=== PATIENT | male | born 2000 | race Hispanic/Latino ===

== ENCOUNTER 2021-11-28 19:47 | Emergency (ER) | payer OTHER ==
[~2021-11-28] VITALS: Ht 177.8 cm; Wt 93.0 kg
[2021-11-28] MEDS ORDERED: ACETAMINOPHEN 325 MG TAB PO ONE (20:15)
[2021-11-28 21:49] VITALS: BP 122/69
== END 2021-11-28 21:50 | disposition home or self-care (01) ==
LOC: ER 20:13
DX: R50.9 Fever, unspecified (principal); B34.9 Viral infection, unspecified; Z20.822 Contact with and (suspected) exposure to COVID-19
CPT/HCPCS: 99283; U0002